=== PATIENT | male | born 1980 ===

== ENCOUNTER 2022-05-11 09:01 | Outpatient (REF) | payer SELFPAY ==
[2022-05-11 19:12] LABS: ALT 29 U/L (16-63); AST 33 U/L (15-37); Alkaline Phosphatase 100 U/L (46-116); Anion Gap 7.6 mmol/L (3-11); BUN 16 mg/dL (7-18); Bilirubin, Total 0.4 mg/dL (0.2-1.0); CO2 27.4 mmol/L (21.0-32.0); CREATININE 0.9 mg/dL (0.70-1.30); Calcium 9.1 mg/dL (8.5-10.1); Calculated LDL 103 mg/dL (<100); Chloride 104 mmol/L (98-107); Cholesterol 161 mg/dL (<200); Estimated GFR 110.04 (mL/min/1.73m2); Glucose 104 mg/dL (74-106); HDL Cholesterol 45 mg/dL (40-60); Sodium 139 mmol/L (136-145); Triglyceride 66 mg/dL (<150)
== END 2022-05-11 09:02 | disposition home or self-care (01) ==
LOC: NCHCN 09:01
PROVIDERS: Visit Provider Physician Assistant
DX: Z00.00 Encounter for general adult medical examination without abnormal findings (principal); K21.9 Gastro-esophageal reflux disease without esophagitis; Z13.220 Encounter for screening for lipoid disorders
CPT/HCPCS: 80053; 80061